=== PATIENT | male | born 1950 | race Caucasian/White ===

== ENCOUNTER → 2016-07-11 | Day surgery (SDC) | payer MEDICARE, OTHER ==
[~2016-07-11] VITALS: Ht 175.3 cm; Wt 87.3 kg
[~2016-07-11] MED LIST: NIACIN500 M3 PO; TYLENOL WITH C1 EACH PO
--- NOTE | ~2016-07-11 | OR ---
PATIENT'S NAME: [facility]ANG [facility] AGE: 65 Y [address] ROOM: [place] [address] LOCATION: [facility] – [place], [place] ADMIT DATE: 07/11/2016 OR/Procedure Report DISCHARGE DATE: FAMILY PHYSICIAN: Colton Marte MD ATTENDING PHYSICIAN: Charly Kinney V SURGEON: Charly Kinney MD BRAID MAKER: Serina Triana PA-C DATE OF PROCEDURE: 07/11/2016 PREOPERATIVE DIAGNOSIS: Basal cell carcinoma, right lateral nose. POSTOPERATIVE DIAGNOSIS: Basal cell carcinoma, right lateral nose. OPERATION/PROCEDURE: Excision 5 x 2.5 cm basal cell carcinoma, right lateral nose with complex closure. ANESTHESIA: Local with sedation. DESCRIPTION OF PROCEDURE: The patient was taken to the operating room, laid in supine position. Proposed incision line marked and infiltrated with 1% lidocaine with epinephrine solution. The nose was prepped and draped in usual sterile fashion using Betadine solution. Approximately 2.5 x 4 cm circumferential skin incision performed surrounding the large basal cell carcinoma, right lateral nose, subcutaneous tissues divided using #15 blade carried down to the periosteum. The subcutaneous tissues divided in avascular plane. The specimen was marked and sent for frozen section pathology. Frozen section pathology revealed all margins were clear. Subcutaneous tissues were undermined using curved iris scissors. The tissue was able to be advanced with primary closure of the subcutaneous tissues with interrupted 5-0 Vicryl sutures. Skin closure performed with interrupted 6-0 Ethilon sutures. Dog- ear deformity was resected superiorly across the nasal bridge. This was inferiorly into the nasal labial crease. Subcutaneous tissues approximated using interrupted 5-0 Vicryl suture. Skin closure performed with interrupted 6-0 Ethilon. The patient tolerated the procedure well. Neosporin was applied. The patient was aroused and discharged from the operating room to recovery room in satisfactory condition. CHARLY KINNEY MD TVC/modl PATIENT'S NAME: WANG GALLEGOS [facility] AGE: 65 Y [address] ROOM: [place], [place] [address] LOCATION: [facility] – [place], [place] ADMIT DATE: 07/11/2016 OR/Procedure Report DISCHARGE DATE: FAMILY PHYSICIAN: Colton Marte MD ATTENDING PHYSICIAN: Charly Kinney V /[id number] CC: Katherin Molina DO d: 07/11/16 1010 t: 07/18/16 0730, OPERATIVE SUMMARY
== END | disposition disaster alternative care site (69) ==
LOC: GPOC 07-04 10:00 → GSDC 06:53
PROC: 0HB1XZZ Excision of Face Skin, External Approach (ICD-10-PCS; principal; 2016-07-11)
DX: C44.311 Basal cell carcinoma of skin of nose (principal); E78.5 Hyperlipidemia, unspecified; M48.06 Spinal stenosis, lumbar region; M47.816 Spondylosis without myelopathy or radiculopathy, lumbar region; Z98.890 Other specified postprocedural states
CPT/HCPCS: J7120